=== PATIENT | female | born 1950 | race Caucasian/White ===

== ENCOUNTER 2017-07-07 14:45 | Emergency (ER) | payer MEDICARE, OTHER ==
[~2017-07-07] VITALS: Ht 157.5 cm; Wt 55.5 kg
[2017-07-07 14:48] VITALS: Ht 157.5 cm; Wt 55.5 kg
[2017-07-07 15:34] LABS: URINE BLOOD (Dip) POC 2+ (NEGATIVE)
[2017-07-07 16:03] LABS: URINE BLOOD (Dip) POC Trace-intact (NEGATIVE)
[2017-07-07] MEDS ORDERED: PHEN-538 PO (16:20)
[2017-07-07] MEDS ORDERED: CEPH-443 PO (16:20)
[2017-07-07] MEDS ORDERED: FLUC150T17 PO (16:20)
--- NOTE | 2017-07-07 16:23 | ERD ---
ER Documentation Chief Complaint Date/Time DATE: 07/07/17 TIME: 16:22 Chief Complaint dysuria x 2 days HPI 67-year-old female presents with dysuria for last 2 days. She denies any fevers or vomiting. She has some mild left low back pain. She denies any abdominal pain vaginal discharge or bleeding. She was treated for UTI approximately 2 months ago ROS All systems reviewed and are negative except as per history of present illness. Medications Home Meds Active Scripts Phenazopyridine Hcl* (Pyridium*) 200 Mg Tab, 200 MG PO TID Y for URINARY PAIN, # 6 TAB Prov:BRENNA SKINNER MD 07/07/17 Fluconazole* (Diflucan*) 150 Mg Tablet, 150 MG PO ONCE, #1 TAB Prov:BRENNA SKINNER MD 07/07/17 Cephalexin* (Keflex*) 500 Mg Capsule, 500 MG PO QID for 7 Days, CAP Prov:BRENNA SKINNER MD 07/07/17 Allergies Allergies: Coded Allergies: No Known Allergy (Unverified , 07/07/17) PMhx/Soc Medical and Surgical Hx: pt denies Medical Hx, pt denies Surgical Hx Hx Alcohol Use: No Hx Substance Use: No Hx Tobacco Use: No Smoking Status: Never smoker Physical Exam Vitals Vital Signs Date Time Temp Pulse Resp B/P Pulse Ox O2 Delivery O2 Flow Rate FiO2 07/07/17 14:48 99.0 87 18 115/54 98 Physical Exam Const: [] Alert, [id number]. Head: Atraumatic Eyes: Normal Conjunctiva ENT: Normal External Ears, Nose and Mouth. Neck: Full range of motion..~ No meningismus. Resp: Clear to auscultation bilaterally Cardio: Regular rate and rhythm, no murmurs Abd: Soft, non tender, non distended. Normal bowel sounds Skin: No petechiae or rashes Back: No midline or flank tenderness. Minimal left L4-5 paraspinous tenderness. Ext: No cyanosis, or edema Neur: Awake and alert Psych: Normal Mood and Affect Results 24 hrs Laboratory Tests Test 07/07/17 15:39 07/07/17 16:07 Bedside Urine pH (LAB) 5.5 7.0 Bedside Urine Protein (LAB) 1+ Negative Bedside Urine Glucose (UA) Negative Negative Bedside Urine Ketones (LAB) Negative 2+ Bedside Urine Blood 2+ Trace-intact Bedside Urine Nitrite (LAB) Negative Negative Bedside Urine Leukocyte Esterase (L 1+ Negative Current Medications Medications (Trade) Dose Ordered Sig/Igor Route PRN Reason Start Time Stop Time Status Last Admin Dose Admin Cephalexin (Keflex) 500 mg ONCE ONCE PO 07/07/17 16:30 07/07/17 16:31 Phenazopyridine HCl (Pyridium) 200 mg ONCE ONCE PO 07/07/17 16:30 07/07/17 16:31 Procedures/MDM And shows positive hemoglobin and leukocytes. Patient is given Keflex 500 mg by mouth. Patient presents with dysuria and signs of UTI. She has no back pain but no additional signs to suggest pyelonephritis, no signs of acute abdomen. She will treated with Keflex, Pyridium and Diflucan at home for itching. Signs and symptoms do not suggest tubo-ovarian abscess, acute abdomen , appendicitis, pyelonephritis, sepsis, additional complications related to presenting complaints. The patient was stable with no new complaints during the ER course. Clinically, there is no current evidence to suggest meningitis, sepsis, acute abdomen, pneumonia, acute coronary syndrome, pulmonary embolism, or any other emergent condition appearing to require further evaluation or hospitalization. The patient should certainly return for any new or worsening symptoms per the aftercare instructions. They should otherwise follow-up with her primary care doctor for reevaluation this week. Disclaimer: Inadvertent spelling and grammatical errors are likely due to EHR/ dictation software use and do not reflect on the overall quality of patient care. Also, please note that the electronic time recorded on this note does not necessarily reflect the actual time of the patient encounter. Departure Diagnosis: Primary Impression: Dysuria Condition: Stable Patient Instructions: Understanding Urinary Tract Infections (UTIs) Additional Instructions: Urine shows signs of infection and we will treat for this as well as yeast infection empirically. Recheck with primary doctor return for fevers, vomiting , new symptoms BRENNA SKINNER MD Jul 07, 2017 16:23
[2017-07-07] MEDS ORDERED: PHENAZOPYRIDINE 100 MG TAB PO ONE (16:30)
[2017-07-07] MEDS ORDERED: CEPHALEXIN 500 MG CAP PO ONE (16:30)
== END 2017-07-07 16:35 | disposition home or self-care (01) ==
LOC: FTE 14:45
DX: R30.0 Dysuria (principal)
CPT/HCPCS: 81003; 99284

== ENCOUNTER 2017-07-09 19:25 | Emergency (ER) | payer MEDICARE, OTHER ==
[~2017-07-09] VITALS: Ht 162.6 cm; Wt 55.0 kg
[~2017-07-09 19:25] MED LIST: CEPH-443 PO; FLUC150T17 PO; PHEN-538 PO
[2017-07-09 19:30] VITALS: Ht 162.6 cm; Wt 55.0 kg
[2017-07-09 21:25] LABS: ADD UMIC YES; UR ASCORBIC ACID NEGATIVE (NEGATIVE); UR BACTERIA FEW /HPF (NONE SEEN); UR BILIRUBIN (Dip) NEGATIVE (NEGATIVE); UR BLOOD (Dip) 2+ mg/dL (NEGATIVE); UR CLARITY CLEAR (CLEAR); UR COLOR AMBER (YELLOW); UR GLUCOSE (Dip) NEGATIVE (NEGATIVE); UR KETONES (Dip) NEGATIVE (NEGATIVE); UR LEUKOCYTE ESTERASE (Dip) 2+ Leu/ul (NEGATIVE); UR NITRITE (Dip) POSITIVE (NEGATIVE); UR RBC 16 /HPF (0-5); UR SPECIFIC GRAVITY (Dip) 1.011 (1.003-1.030); UR SQUAMOUS EPITHELIAL CELL FEW /HPF (FEW); UR TOTAL PROTEIN (Dip) NEGATIVE (NEGATIVE); UR UROBILINOGEN (Dip) 2+ mg/dL (NEGATIVE)
[2017-07-09] MEDS ORDERED: CEFTRIAXONE 1 GM INJ IM ONE (23:00)
[2017-07-09] MEDS ORDERED: METR500T PO (23:07)
[2017-07-09] MEDS ORDERED: ACET500C5 PO (23:07)
[2017-07-09] MEDS ORDERED: DOXY100T20 PO (23:07)
--- NOTE | 2017-07-09 23:15 | ERD ---
ER Documentation Chief Complaint Date/Time DATE: 07/09/17 TIME: 23:10 Chief Complaint painful urination x 5 days (PIERO MARC PA-C) HPI 67-year-old female patient with no significant past medical history presents the ED complaining of vaginal burning and dysuria that started 5 days ago. Patient was seen here 2 days ago and was diagnosed with a urinary tract infection. Patient was given Keflex and has been taking it consistently. Patient states that her symptoms have not been improving. Reports that she has some vaginal discharge has vaginal pain. Denies being sexually active. Denies any fever, chills abdominal pain, pelvic pain, nausea, vomiting, diarrhea, constipation. Reports that she is also used estrogen cream for vaginal dryness. (PIERO MARC PA-C) ROS All systems reviewed and are negative except as per history of present illness. (PIERO MARC PA-C) Medications Home Meds Active Scripts Acetaminophen* (Tylophen*) 500 Mg Capsule, 1 CAP PO Q6H Y for PAIN AND OR ELEVATED TEMP, #20 CAP Prov:PIERO MARC PA-C 07/09/17 Metronidazole* (Flagyl*) 500 Mg Tablet, 500 MG PO TID for 14 Days, TAB Prov:PIERO MARC PA-C 07/09/17 Doxycycline Hyclate* (Doxycycline Hyclate*) 100 Mg Tablet.dr, 100 MG PO BID for 14 Days, TAB Prov:PIERO MARC PA-C 07/09/17 Phenazopyridine Hcl* (Pyridium*) 200 Mg Tab, 200 MG PO TID Y for URINARY PAIN, # 6 TAB Prov:BRENNA SKINNER MD 07/07/17 Fluconazole* (Diflucan*) 150 Mg Tablet, 150 MG PO ONCE, #1 TAB Prov:BRENNA SKINNER MD 07/07/17 Cephalexin* (Keflex*) 500 Mg Capsule, 500 MG PO QID for 7 Days, CAP Prov:BRENNA SKINNER MD 07/07/17 Allergies Allergies: Coded Allergies: No Known Allergy (Unverified , 07/09/17) PMhx/Soc Medical and Surgical Hx: pt denies Medical Hx, pt denies Surgical Hx Hx Alcohol Use: No Hx Substance Use: No Hx Tobacco Use: No Smoking Status: Never smoker (PIERO MARC PA-C) Physical Exam Physical Exam Const: [id number], well-nourished. In no acute distress. Head: Atraumatic, normocephalic Eyes: Normal Conjunctiva without injection. No purulent discharge. ENT: Normal external ear, nose. Moist oropharynx without tonsillar exudates. Non -erythematous pharynx. Uvula midline. No drooling. No trismus. Neck: No cervical midline tenderness. Full range of motion. No meningismus. No cervical lymphadenopathy. No JVD. Resp: Clear to auscultation bilaterally. No wheezing, rhonchi, rales, or crackles. No accessory muscle use. No retractions. Cardio: Regular rate and rhythm. No murmurs, rubs or gallops. Abd: Soft, nontender, non distended. Normal bowel sounds. No palpable masses. No rebound tenderness. No guarding. Negative McBurney's point. Negative psoas sign. Negative obturator sign. : See exam in MDM. Skin: No petechiae or rashes Back: No midline tenderness. No CVA tenderness. Ext: No cyanosis, or edema. Neur: Awake and alert. Normal gait. Normal coordination. Psych: Normal Mood and Affect (PIERO MARC PA-C) Results 24 hrs Laboratory Tests Test 07/09/17 20:00 Urine Color PRIYA Urine Clarity CLEAR Urine pH 7.0 Urine Specific Fraser 1.011 Urine Ketones NEGATIVEmg/dL Urine Nitrite POSITIVEmg/dL Urine Bilirubin NEGATIVEmg/dL Urine Urobilinogen 2+mg/dL Urine Leukocyte Esterase 2+Radha/ul Urine Microscopic RBC 16/HPF Urine Microscopic WBC 43/HPF Urine Squamous Epithelial Cells FEW/HPF Urine Bacteria FEW/HPF Urine Hemoglobin 2+mg/dL Urine Glucose NEGATIVEmg/dL Urine Total Protein NEGATIVEmg/dl Chlamydia trachomatis RNA (TMA) NOT DETECTED Chlamydia/GC Comment SEE NOTE Neisseria gonorrhoeae RNA (TMA) NOT DETECTED Current Medications Medications (Trade) Dose Ordered Sig/Igor Route PRN Reason Start Time Stop Time Status Last Admin Dose Admin Ceftriaxone Sodium (Rocephin) 1 gm ONCE ONCE IM 07/09/17 23:00 07/09/17 23:01 DC 07/09/17 23:04 (RALPH BARRIOS DO) Procedures/MDM This is a 67-year-old female patient with no significant past medical history presents the ED complaining of dysuria, vaginal burning and pain that started 5 days ago. Patient is afebrile and nontoxic-appearing. Patient gave consent to do a pelvic exam. A wet mount, general culture, herpes culture was ordered to further evaluate patient. Wet mount came back with positive clue cells. Patient likely has bacterial vaginosis. Due to appearance of patient's vaginal discharge, patient will be treated here in the ED with ceftriaxone 1 mg IM. Urinalysis shows positive nitrite, 2+ leuks with 43 white blood cells. Patient is currently taking Keflex which was prescribed 2 days ago. I strictly instructed her to continue taking this antibiotic. In additional, patient will be given a prescription for doxycycline, metronidazole. Pelvic Exam: Tacker Off present Abdomen: [Nontender] External Genitalia: [Ulcerated lesions in the external genitalia of the labia minora - 3 cm in size with erythematous base with yellow purulent discharge] Speculum: [Yellow purulent discharge in the vaginal canal with slightly erythematous cervix] Bimanual: [No adnexal masses or tenderness, No CMT] I instructed patient that she should see an [facility] OPERATOR for further evaluation and treatment. Patient does have bacterial vaginosis as well as a urinary tract infection. Other differentials also include pelvic inflammatory disease, syphilis with a chancroid present. Patient should also obtain a biopsy. Low suspicion for symptomatic anemia, ectopic , sepsis, PID, appendicitis, ovarian torsion, tubo-ovarian abscess, surgical abdomen, or other emergent conditions. Patient to follow up with [facility] OPERATOR tomorrow for further evaluation and treatment. Patient is to return sooner to the ED for any worsening symptoms. Patient's questions were answered. Patient understood and agreed with discharge plan. (PIERO MARC PA-C) I saw this patient in conjunction with the advanced care provider and agree with diagnoses, treatment, and documentation. (RALPH BARRIOS DO) Departure Diagnosis: Primary Impression: Dysuria Additional Impressions: Vaginal discharge Vaginal ulcer Vaginal burning Condition: Stable Patient Instructions: Dysuria, What Is Pelvic Inflammatory Disease?, Urinary Tract Infections in Women, Vaginal Infection: Bacterial Vaginosis Referrals: COMMUNITY CLINICS YOU HAVE RECEIVED A MEDICAL SCREENING EXAM AND THE RESULTS INDICATE THAT YOU DO NOT HAVE A CONDITION THAT REQUIRES URGENT TREATMENT IN THE EMERGENCY DEPARTMENT. FURTHER EVALUATION AND TREATMENT OF YOUR CONDITION CAN WAIT UNTIL YOU ARE SEEN IN YOUR DOCTORS OFFICE WITHIN THE NEXT 1-2 DAYS. IT IS YOUR RESPONSIBILITY TO MAKE AN APPOINTMENT FOR FOLOW-UP CARE. IF YOU HAVE A PRIMARY DOCTOR --you should call your primary doctor and schedule an appointment IF YOU DO NOT HAVE A PRIMARY DOCTOR YOU CAN CALL OUR PHYSICIAN REFERRAL HOTLINE AT IF YOU CAN NOT AFFORD TO SEE A PHYSICIAN YOU CAN CHOSE FROM THE FOLLOWING [facility] [address] [facility] [address] [facility] [address] [facility] [address] [facility] [address] [facility]. [facility] [address] [facility]. [facility] YOU HAVE RECEIVED A MEDICAL SCREENING EXAM AND THE RESULTS INDICATE THAT YOU DO NOT HAVE A CONDITION THAT REQUIRES URGENT TREATMENT IN THE EMERGENCY DEPARTMENT. FURTHER EVALUATION AND TREATMENT OF YOUR CONDITION CAN WAIT UNTIL YOU ARE SEEN IN YOUR DOCTORS OFFICE WITHIN THE NEXT 1-2 DAYS. IT IS YOUR RESPONSIBILITY TO MAKE AN APPOINTMENT FOR FOLOW-UP CARE. IF YOU HAVE A PRIMARY DOCTOR --you should call your primary doctor and schedule and appointment IF YOU DO NOT HAVE A PRIMARY DOCTOR YOU CAN CALL OUR PHYSICIAN REFERRAL HOTLINE AT . IF YOU CAN NOT AFFORD TO SEE A PHYSICIAN YOU CAN CHOSE FROM THE FOLLOWING [facility]: [facility] [address] [place] [address] [facility] [address] [place] [address] [facility] [address] [place] [address] [facility]ER OPERATOR [place] [address] [facility] [address] [place] [address] OFFICE FAX [facility] [address] ([address]) [address] [place], [place] [address] [place] [address] [address] COTTRELL, [facility] [address], [address], [facility] [address] [address]UL[address], [facility] [address] [facility], [place] [address] [facility] [address] [place] [address] [address] [facility] [address] - [address] LEON [place] [address], [facility] [address] [address] [place], [place] [address] [facility]. [address], [facility] [address] [address] MCCORMICK, [facility] [address] [place] [address] Additional Instructions: Continue taking the Keflex for your urinary tract infection. Doxycycline and Metronidazole will also be prescribed for your vaginal discharge. No sun exposure when taking doxycycline. Do not drink alcohol while taking metronidazole. FOLLOW UP WITH YOUR PRIMARY CARE PHYSICIAN TOMORROW for a referral to an [facility] OPERATOR for further evaluation and treatment.Return to this facility if you are not improving as expected - fever, nausea, vomiting, worsening abdominal pain, vaginal bleeding, etc. PIERO MARC PA-C Jul 09, 2017 23:15 RALPH BARRIOS DO Jul 14, 2017 12:12
== END 2017-07-09 23:21 | disposition home or self-care (01) ==
LOC: FTE 19:25
DX: R30.0 Dysuria (principal); N76.5 Ulceration of vagina
CPT/HCPCS: 81001; 87070; 87086; 87210; 87255; 87591; 96372; 99284; J0696

== ENCOUNTER 2018-11-15 16:09 | Emergency (ER) | END 2018-11-15 17:31 | disposition home or self-care (01) ==